=== PATIENT | male | born 1975 | race Caucasian/White ===

== ENCOUNTER 2016-08-05 18:14 | Emergency (ER) | payer OTHER ==
[2016-08-05 18:32] VITALS: BP 123/82; PULSE 84; RESP 16; TEMP 98.1; O2SAT 97
--- NOTE | 2016-08-05 18:55 | EDPHY ---
H & P Smoking Status: Never smoked Time Seen by Provider: 08/05/16 18:48 HPI/ROS: CHIEF COMPLAINT: Left knee and left elbow pain HISTORY OF PRESENT ILLNESS: 41-year-old male visiting from [place] was snowboarding yesterday, caught an edge landing hard on his left knee. Complaining of left patellar pain. Has been able to bear weight although has reproducible pain with palpation weight-bearing flexion. No paresthesia. No proximal or distal pain or injury Today he was snowboarding and fell onto his left elbow pain is complaining of left elbow pain reproducible with range of motion. No paresthesia. No proximal or distal pain or injury PHYSICAL EXAM (Prior to examination, patient consented to physical exam, hands were washed and my usual and customary physical exam procedures followed) 1) GENERAL: Well-developed, well-nourished, alert and oriented. Appears to be in no acute distress. 2) HEAD: Normocephalic 3) HEENT: Pupils equal, round, reactive to light bilaterally. 4) LUNGS: Breathing comfortably. 5) MUSCULOSKELETAL: Left lower extremity: Exam of the left knee shows normal visualization, tender to palpation patella. Intact skin. . Compartments are soft. Proximally distally nontender. Left upper extremity: Tender to palpation posterior elbow with soft tissue swelling noted. Radial head nontender. Proximally distally nontender. Distal radial ulnar median nerve function intact. 6) SKIN: intact 7) VASCULAR: DP,PT pulses and cap refill present and brisk distally DIFFERENTIAL DIAGNOSIS: in no particular order including but not limited to fracture, sprain, compartment syndrome, septic arthritis, DVT Procedure: Splint A knee immobilizer splint was applied by ER dialysis biomed technician. After application of the splint I returned and re-examined the patient. The splint was adequately immobilizing the joint and distal to the splint the patient's circulation and sensation were intact. Patient shows no signs of compartment syndrome. Was given orthopedic precautions. MEDICAL DECISION MAKING Serial evaluations performed on patient. I discussed the limitations of x-ray in diagnosis of knee pain and injury. At this time I do not think that emergent MRI is currently indicated. However, I have recommended follow-up with Orthopedic surgery and provided this referral information. Informed the patient that outpatient MRI may be indicated. Doubt septic arthritis. Doubt compartment syndrome. Doubt DVT. (Johnny Valdes) Constitutional: Initial Vital Signs Temperature (C) 36.7 C 08/05/16 18:29 Heart Rate 84 08/05/16 18:29 Respiratory Rate 16 08/05/16 18:29 Blood Pressure 123/82 H 08/05/16 18:29 O2 Sat (%) 97 08/05/16 18:29 O2 Delivery Mode Room Air Allergies/Adverse Reactions: No Known Allergies Allergy (Unverified 08/05/16 18:29) Home Medications: Medication Instructions Recorded Hydrocodone/APAP 5/325 [[place] 1 tab PO Q6 PRN #10 tab 08/05/16 5/325 (RX)] Tamiflu 08/05/16 MDM/Departure - MDM Diagnostics: Knee 4 or More Views Left History: Pain Comparison exam: None available. Findings: There appears to be an acute mildly displaced fracture through an enthesite originating from the lower pole of the patella at the patellar tendon origin. Associated soft tissue swelling. Study is otherwise unremarkable. Joint spaces are maintained. Impression: Acute fracture through an enthesite originating from the lower pole of the left patella. Exam reviewed with Americo Valdes PA-C. Dictated By: Alexis García MD Left elbow, 3 views. History: Pain Comparison examination:none available Findings: No fracture identified. Normal alignment. Joint spaces are maintained. Soft tissues appear unremarkable. Impression: Negative left elbow radiographs. Dictated By: Alexis García MD Images reviewed by myself (Johnny Valdes) ED Course/Re-evaluation: Re-evaluated with serial exams. Soft compartments. Neurovascularly intact. He has been placed in a knee immobilizer. He has been coming copies of his x- rays as he lives in [place]. Recommend follow up with Orthopedics in [place]. Limitations of x-ray discussed with the patient. I do not think that emergent MRI is indicated. My usual and customary orthopedic precautions and instructions have been provided. (Johnny Valdes) The patient was evaluated and managed by the physician office services assistant. I have reviewed this chart and I agree with the findings and plan of care as documented , as indicated by my signature. I am the secondary supervising physician. ( Kiki Tariq) - Depart Disposition: Home, Routine, Self-Care Clinical Impression: Left patella fracture Qualifiers: Encounter type: initial encounter Fracture type: closed Fracture morphology: other fracture Qualified Code(s): S82.092A - Other fracture of left patella, initial encounter for closed fracture Snowboarding accident Qualifiers: Encounter type: initial encounter Qualified Code(s): V00.318A - Other snowboard accident, initial encounter Sprain of left elbow Qualifiers: Encounter type: initial encounter Qualified Code(s): S53.402A - Unspecified sprain of left elbow, initial encounter Condition: Good Instructions: Patellar Fracture (ED), Elbow Sprain (ED) Additional Instructions: Return to the ER immediately if you experience discoloration, have worsening pain, numbness, tingling, or any other symptoms that concern you. If you received x-rays in the emergency department today, be advised, that ligamentous , tendon, muscular, and other non-bony injury cannot be fully ruled out. Try to keep your affected extremity elevated above the level of your chest, and keep cold packs on the affected area, for the next 48 hours. Prescriptions: Hydrocodone/APAP 5/325 [[place] 5/325 (RX)] 1 tab PO Q6 PRN #10 tab PRN Reason: Pain, Severe Referrals: Luis Daniel Arriaza MD [Medical Doctor] - 2-3 days, call for appt. (Dr. Luis Daniel Arriaza is orthopedic surgeon. You may also follow up with an orthopedic surgeon in [place])
== END 2016-08-05 19:33 | disposition home or self-care (01) ==
DX: S82.092A Other fracture of left patella, initial encounter for closed fracture (principal); S53.402A Unspecified sprain of left elbow, initial encounter; V00.311A Fall from snowboard, initial encounter; Y92.39 Other specified sports and athletic area as the place of occurrence of the external cause; Y93.23 Activity, snow (alpine) (downhill) skiing, snowboarding, sledding, tobogganing and snow tubing
CPT/HCPCS: L1830